=== PATIENT | male | born 1980 | race Caucasian/White ===

== ENCOUNTER 2022-10-08 11:17 | Emergency (ER) | payer OTHER, SELFPAY ==
[2022-10-08 11:19] VITALS: BP 162/103; PULSE 102; RESP 16; TEMP 37.3; O2SAT 98; BMI 26.3
--- NOTE | 2022-10-08 11:25 | DI.RAD.S_ITS ---
PROCEDURE: XR LUMBAR SPINE 2-3V INDICATIONS: fall with low back pain TECHNIQUE: 3 views of the lumbar spine were acquired. COMPARISON: None. FINDINGS: Bones: Degenerative changes in the lower lumbar spine with anterior osteophytes. Disc space narrowing at L5-S1. Soft tissues: Overlying bowel gas pattern is normal. No suspicious soft tissue calcifications. IMPRESSION: 1. No acute abnormality of the lumbar spine 2. L5-S1 degenerative changes Dictated by: Ike Noe M.D. on 10/08/2022 at 10:54 Approved by: Ike Noe M.D. on 10/08/2022 at 10:56
[2022-10-08 11:26] VITALS: PULSE 102; O2SAT 98
[2022-10-08 11:27] VITALS: BP 162/103; PULSE 101; O2SAT 98
--- NOTE | 2022-10-08 11:27 | ED_ITS ---
HPI - General Adult General Chief complaint: Fall Stated complaint: fell 5 feet into a tree with back T-4 Time Seen by Provider: 10/08/22 11:25 History of Present Illness HPI narrative: 41-year-old male nonsmoker presents with a chief complaint of low back pain and increasing bleeding from his hemorrhoids. He states that he was fine and well until traumatic injury a few days ago. He was camping locally and slipped from some stairs on his RV and fell backwards into a tree from the stairs. He denies any head or neck pain. Denies any chest pain or shortness of breath. He states that he has abrasions overlying his left flank and was doing okay for the 1st few days but states that now he is bleeding more from his hemorrhoids and feels lightheaded. He denies any numbness, tingling or weakness in his lower extremities. Denies loss of control of bowel or bladder. He states he feels fatigued and just a bit unwell Related Data Previous Rx's Medication Instructions Recorded hydrocodone 5 mg-acetaminophen 325 1 tab PO Q4-6H PRN pain #10 tabs 10/08/22 mg tablet ondansetron 4 mg disintegrating 4 mg PO TID-QID PRN nausea and 10/08/22 tablet vomiting #10 tabs Allergies Allergy/AdvReac Type Severity Reaction Status Date / Time acetaminophen [From Tylenol] AdvReac Mild Gastrointestinal Verified 10/08/22 11:36 Upset ibuprofen AdvReac Mild Gastrointestinal Verified 10/08/22 11:36 Upset Review of Systems Review of Systems Narrative: GENERAL: See HPI HEENT: Denies sinus pain, ear pain, sore throat, difficulty swallowing, dizziness. RESPIRATORY: Denies dyspnea, cough, wheezing, hemoptysis, sputum. CARDIOVASCULAR: Denies chest pain, palpitations, orthopnea, edema, GASTROINTESTINAL: Denies nausea, vomiting, abdominal pain, diarrhea, constipation, melena. : Denies dysuria, frequency, incontinence, hematuria, urinary retention. MUSCULOSKELETAL: See HPI SKIN: Denies rash, skin lesions, or other NEUROLOGIC: Denies weakness, headache, numbness, change in speech, confusion, seizures, incoordination. PSYCHIATRIC: No concerning psychosocial issues. 12 point review of systems is negative except for those stated above Patient History Social History Smoking Status: Current every day smoker Exam Narrative Exam Narrative: GENERAL: [41] year old patient appears stated age. Well-developed patient, in mild distress. HEAD: Atraumatic. Normocephalic. EYES: Pupils equal round and reactive. Extraocular motions intact. No scleral icterus. No injection or drainage. ENT: Nose without bleeding, purulent drainage. Throat without erythema, tonsillar hypertrophy or exudate. Airway patent. NECK: Trachea midline. Non tender CARDIOVASCULAR: Regular rate and rhythm without murmurs, gallops, or rubs. RESPIRATORY: Clear to auscultation. Breath sounds equal bilaterally. No wheezes, rales, or rhonchi. GASTROINTESTINAL: Abdomen soft, non-tender, nondistended. RECTAL: 2cm external hemorrhoid without bleeding EXTREMITIES: No edema or joint tenderness. BACK: Patient has decreased range of motion in his back due to pain. He has soft tissue tenderness to palpation. There is no bony point tenderness. Patie nt has no signs of cauda equina such as saddle anesthesia, decreased reflexes, or foot drop. Patient has negative straight leg raising NEURO: AOx3. SKIN: No rash or erythema of visible areas Initial Vital Signs Initial Vital Signs: Vital Signs Temperature 99.1 F 10/08/22 11:19 Pulse Rate 102 H 10/08/22 11:19 Respiratory Rate 16 10/08/22 11:19 Blood Pressure 162/103 H 10/08/22 11:19 Pulse Oximetry 98 10/08/22 11:19 Oxygen Delivery Method Room Air 10/08/22 11:19 Course Orders Ordered: Discontinued Medications Hydrocodone Bitart/Acetaminophen (Hydrocodone/Acet 5/325 Prepack) 1 bottle MISC SEEINSTR ONE Stop: 10/08/22 17:14 Last Admin: 10/08/22 17:36 Dose: 1 bottle Documented By: NR Lidocaine HCl (Lidocaine 2% (Glydo) 6 Ml Gel) 6 ml TOP NOW ONE Stop: 10/08/22 12:54 Last Admin: 10/08/22 13:18 Dose: 6 ml Documented By: NR Ondansetron HCl (Ondansetron 4 Mg Odt Prepack) 1 bottle MISC SEEINSTR ONE Stop: 10/08/22 17:14 Last Admin: 10/08/22 17:36 Dose: 1 bottle Documented By: NR Vital Signs Vital signs: Vital Signs - 8 hr 10/08/22 11:19 10/08/22 11:26 10/08/22 11:27 Temperature 99.1 F Pulse Rate 102 H 102 H Respiratory Rate 16 Blood Pressure 162/103 H 162/103 H Pulse Oximetry 98 98 Oxygen Delivery Method Room Air 10/08/22 11:27 10/08/22 11:30 10/08/22 11:30 Temperature Pulse Rate 101 H 98 H Respiratory Rate Blood Pressure 164/104 H Pulse Oximetry 98 96 Oxygen Delivery Method Medical Decision Making Lab Data 10/08/22 11:38 10/08/22 11:38 Labs: Lab Results 10/08/22 10/08/22 Range/Units 11:38 11:38 WBC 12.1 H (4.5-11.0) X10^3/uL RBC 5.41 (4.5-5.9) X10^6/uL Hgb 16.7 (13.5-17.5) g/dL Hct 47.4 (41-53) % MCV 87.7 (80-100) fL MCH 30.9 (26-34) PG MCHC 35.2 (30-36) % RDW 12.2 (11.6-14.8) % Plt Count 409 H (150-400) X10^3/uL Neut % (Auto) 66.3 (50-75) % Lymph % (Auto) 22.3 L (25-40) % Mckinley % (Auto) 9.5 (3-14) % Eos % (Auto) 1.2 L (2-4) % Baso % (Auto) 0.7 (0-2) % Neut # (Auto) 8000 H (5396-3780) /uL Lymph # (Auto) 2700 (7760-4815) /uL Mckinley # (Auto) 1100 H (0-900) /uL Eos # (Auto) 100 (0-450) /uL Baso # (Auto) 100 (0-100) /uL Sodium 139 (137-145) mmol/L Potassium 3.9 (3.4-5.1) mmol/L Chloride 101 (98-107) mmol/L Carbon Dioxide 28 (22-32) mmol/L BUN 10 (9-20) mg/dL Creatinine 0.78 (0.66-1.25) mg/dL Estimated GFR > 60 (>60) mL/min BUN/Creatinine Ratio 12.8 (6-22) Glucose 131 H (70-100) mg/dL Calcium 9.3 (8.4-10.2) mg/dL Urine Dip Bedside Urine Glucose Negative Bedside Urine Bilirubin - Negative Bedside Urine Ketone - Negative Urine Specific Gilmore 1.015 Bedside Urine Occult Blood - Negative Bedside Urine pH 6.5 Bedside Urine Protein - Negative Bedside Urine Urobilinogen - Negative Bedside Urine Nitrite - Negative Bedside Urine Leukocytes - Negative Esterase Point of care testing: Urine Dip Bedside Urine Glucose Negative Bedside Urine Bilirubin - Negative Bedside Urine Ketone - Negative Urine Specific Gilmore 1.015 Bedside Urine Occult Blood - Negative Bedside Urine pH 6.5 Bedside Urine Protein - Negative Bedside Urine Urobilinogen - Negative Bedside Urine Nitrite - Negative Bedside Urine Leukocytes - Negative Esterase MDM Narrative Medical decision making narrative: [41] year old patient presents with fall and back pain Multiple etiologies for patient's symptoms considered including, but not limited to: [Fracture versus contusion versus intra-abdominal hamstring versus anemia versus other] Prior Charts reviewed in our EMR Primary Historian: patient Labs reviewed and interpreted by myself: No significant abnormal labs Imaging reviewed: Lumbar x-ray without fracture or dislocation. CT of abdomen and pelvis with IV contrast shows no significant traumatic injury, no internal bleeding, no fracture. MRI obtained and does show some central canal narrowing but no fracture, no bleeding, signs of cauda equina Patient's symptoms improved over duration of stay with above-stated therapies. Patient has no signs or symptoms of neurosurgical emergency, good rectal tone, 5/5 lower extremity strength, no saddle anesthesia. There is no evidence of fracture or other traumatic injury. He does have external hemorrhoid and has developed urinary retention. Perdue catheter is placed, instructions to follow with urology. Extensive discussion regarding hemorrhoids including stool softeners, hemorrhoid pillow, Sitz bath. Findings and discharge diagnosis discussed with patient/family followed by verbalization of understanding Return precautions discussed with patient/family whom verbalize understanding of diagnosis and plan Discharge Plan Departure Patient Disposition: Home Clinical Impression: Back pain, Acute urinary retention, Hemorrhoids Instructions: DI for Hemorrhoids, DI for Urinary Retention in Men Activity Restrictions/Additional Instructions: *You have been diagnosed with [fall with back pain, urinary retention and hemor rhoids] *What to do: *Please continue to take your regular medications as directed. [x ] New medication prescriptions sent to your pharmacy: [[facility] in [place] ] [ ] New medication written as a paper prescription [ ] No new medications given *Please follow up with your primary care provider in 2-3 days, call for an appointment. Let them know you were seen in the Emergency Department and that we ask that you be seen in follow up. We will electronically transmit a record of today's note if your PCP is in our system * as we discussed regarding the urinary retention, we typically leave the Perdue catheter in place and encouraged her to follow-up with urology. They typically will remove it in their office and decide if your appropriate to leave it out or if they need to intervene. I have included the contact information for our Urology group but recognize you may follow-up closer to home. Regarding hemorrhoids. It is important to not lift heavy objects, greater than 15 lb. Furthermore, and this is especially important when taking pain medica tions is important to not become constipated or strain on the toilet as this will certainly worsen your hemorrhoids. The use of a hemorrhoid doughnut can be helpful as can the daily use of a Sitz bath. *If you do not have a primary care provider please contact the [facility] Resource line at [phone]. They will ask some questions about your medical history and help get you set up with a doctor in the community. *Return to Emergency Department if you should have any new, worsening or concerning symptoms, such as [fever greater than 101 F, shaking chills, worsening pain, persistent vomiting or other bothersome symptoms] Prescriptions: New hydrocodone-acetaminophen 5-325 mg tablet 1 tab PO Q4-6H PRN (Reason: pain) Qty: 10 0RF ondansetron 4 mg tablet,disintegrating 4 mg PO TID-QID PRN (Reason: nausea and vomiting) Qty: 10 0RF Referrals: tSepan Hooks MD [Physician] - Miscellaneous,MD Ezio [Non-Staff] - Carson Nazario MD [Physician] - Stand Alone Forms: Patient Portal/API
[2022-10-08 11:30] VITALS: BP 164/104; PULSE 98; O2SAT 96
[2022-10-08 11:59] LABS: Add Manual Diff / Slide Review NO; Basophils Absolute Auto 100 /uL (0-100); Basophils Percent Auto 0.7 % (0-2); Eosinophils Absolute Auto 100 /uL (0-450); Eosinophils Percent Auto 1.2 % (2-4); Hematocrit 47.4 % (41-53); Hemoglobin 16.7 g/dL (13.5-17.5); Lymphocytes Absolute Auto 2700 /uL (1100-4500); Lymphocytes Percent Auto 22.3 % (25-40); Mean Corpuscular HGB Conc 35.2 % (30-36); Mean Corpuscular Hemoglobin 30.9 PG (26-34); Mean Corpuscular Volume 87.7 fL (80-100); Monocytes Absolute Auto 1100 /uL (0-900); Monocytes Percent Auto 9.5 % (3-14); Neutrophils Absolute Auto 8000 /uL (1500-7000); Neutrophils Percent Auto 66.3 % (50-75); Platelet Count 409 X10^3/uL (150-400); Red Blood Cell Count 5.41 X10^6/uL (4.5-5.9); Red Cell Distribution Width 12.2 % (11.6-14.8); White Blood Cell Count 12.1 X10^3/uL (4.5-11.0)
[2022-10-08 12:00] LABS: BUN Creatinine Ratio 12.8 (6-22); Blood Urea Nitrogen 10 mg/dL (9-20); Calcium 9.3 mg/dL (8.4-10.2); Carbon Dioxide 28 mmol/L (22-32); Chloride 101 mmol/L (98-107); Estimated Glomerular Filt Rate > 60 mL/min (>60); Glucose 131 mg/dL (70-100); HEMOLYSIS < 15 (0-50); Potassium 3.9 mmol/L (3.4-5.1); Sodium 139 mmol/L (137-145)
--- NOTE | 2022-10-08 13:07 | DI.CT.S_ITS ---
PROCEDURE: CT ABDOMEN PELVIS W CON INDICATIONS: low back and flank pain after fall TECHNIQUE: After the administration of intravenous contrast, axial sections acquired from the lung bases to the pubic symphysis. Coronal and sagittal reformats were performed. For radiation dose reduction, the following was used: automated exposure control, adjustment of mA and/or kV according to patient size. COMPARISON: None. FINDINGS: Image quality: Excellent. Lung bases: Lung bases are clear. Heart size is normal. Solid organs: Liver: The liver has no mass or intrahepatic biliary ductal dilatation. The portal vein and hepatic veins are patent. Decreased density consistent with hepatic steatosis. Biliary: The gallbladder has no gallstones, pericholecystic fluid, gallbladder wall thickening, or surrounding inflammatory change. Pancreas: The pancreas has no mass or ductal dilatation. There is no surrounding inflammation. Spleen: Normal size. There are no masses. Adrenals: No hypertrophy or nodules. Kidneys: No obstructive calculus or hydronephrosis. No solid mass. No cystic mass. Peritoneum and bowel: The distal esophagus and stomach are normal. The small bowel has a normal caliber and appearance. The terminal ileum is normal. The large bowel has a normal caliber with diverticula but no evidence of acute diverticulitis. The appendix is normal. No free fluid or air. Nodes and vessels: No retroperitoneal or mesenteric adenopathy by size criteria. Aorta and inferior vena cava are normal in size. Miscellaneous: No abdominal wall mass or hernia. PELVIS: Genitourinary: The bladder is decompressed with a Perdue. Bones: No suspicious bony lesions. No compression fracture. Degenerative disc disease at L5-S1. IMPRESSION: IMPRESSION: 1. No acute abnormality of the abdomen or pelvis. 2. No acute traumatic abnormality of the lumbar spine. 3. Chronic degenerative disc disease at L5-S1. 4. No solid organ injury. 5. Hepatic steatosis. 6. Diverticulosis without evidence of diverticulitis. Dictated by: Ike Noe M.D. on 10/08/2022 at 13:29 Approved by: Ike Noe M.D. on 10/08/2022 at 13:34
[2022-10-08] MEDS: LIDOCAINE 2% (GLYDO) 6 ML GEL TOP (13:18)
[2022-10-08 14:37] VITALS: BP 156/82; PULSE 88; O2SAT 98
--- NOTE | 2022-10-08 15:03 | PC.NURSE ---
speaking with patient. pt has felt like he needed to go to the bathroom since the fall but when he goes he has extreme pain that prevents him from emptying his bladder. he thinks this is caused from his hemorrhoids. patient also states that he has been bleeding from his rectum since the fall and he thinks it is his hemorrhoids. when patient went to MRI, nurse checked bed and noticed a wet area about 1ft long and 4wide that was mostly clear but did have some pink tinge on the sheets. notified charge nurse and provider of this.
--- NOTE | 2022-10-08 15:12 | DI.MRI.S_ITS ---
PROCEDURE: MR LUMBAR SPINE WO CON INDICATIONS: urinary retention, new, back pain TECHNIQUE: Noncontrast sagittal T1 spin echo and T2 fast echo, sagittal STIR, and T2 fast spin echo through the lumbar spine. In cases with scoliosis, additional coronal T2 fast spin echo may be performed. COMPARISON: None. FINDINGS: Image quality: Excellent. Alignment and Curvature: There is normal bony alignment. Bone Marrow: Marrow is of normal overall signal. No acute vertebral body compression fractures. Spinal Cord: Conus medullaris terminates at the L1 level. Visualized cord demonstrates normal signal and size. Paraspinous Soft Tissues: No paravertebral masses. T12-L1: No significant disc bulge. The foramina and central canal are patent. L1-L2: No significant disc bulge. The foramina and central canal are patent. L2-L3: No significant disc bulge. The foramina and central canal are patent. L3-L4: The disc is desiccated consistent with degeneration. Diffuse disc bulge causes mild bilateral foraminal stenosis. The central canal has mild stenosis. L4-L5: The disc is desiccated consistent with degeneration. Diffuse disc bulge causes mild bilateral foraminal stenosis. The central canal is patent. L5-S1: The disc is desiccated consistent with degeneration. There is disc space narrowing. Mild bilateral facet arthrosis. Moderate bilateral foraminal stenosis. The central canal is patent. IMPRESSION: 1. Multilevel degenerative disc disease at L3-4, L4-5 causing foraminal and central canal stenosis as detailed above. 2. Mild central canal stenosis at L3-4. Dictated by: Ike Noe M.D. on 10/08/2022 at 15:37 Approved by: Ike Noe M.D. on 10/08/2022 at 15:40
[2022-10-08] MEDS: ONDANSETRON 4 MG ODT PREPACK 1 BOTTLE MISC (17:36)
[2022-10-08] MEDS: HYDROCODONE/ACET 5/325 PREPACK 1 BOTTLE MISC (17:36)
== END 2022-10-08 17:38 | disposition home or self-care (01) ==
PROVIDERS: Emergency Provider Emergency Medicine; PCP Family Medicine
DX: M54.50 Low back pain, unspecified (principal); K64.9 Unspecified hemorrhoids; R33.8 Other retention of urine; W10.9XXA Fall (on) (from) unspecified stairs and steps, initial encounter
CPT/HCPCS: 36415; 51798; 72100; 72148; 74177; 80048; 81003; 85025; 99284; 99285